=== PATIENT | male | born 2000 | race Caucasian/White ===

== ENCOUNTER → 2021-11-25 | Outpatient (CLI) | payer BC ==
--- NOTE | 2021-11-26 09:19 | XR ---
EXAMINATION TYPE: XR abdomen 2V DATE OF EXAM: 11/25/2021 COMPARISON: NONE HISTORY: Pain TECHNIQUE: Two view abdominal series FINDINGS: The osseous structures are intact. The bowel gas pattern is nonspecific. Lung bases are clear. No s uspicious calcifications overlying the renal outline there is a vague calcification in the left hemip [place] IMPRESSION: 1. Nonspecific abdomen. A 3 mm left hemipelvic calcification is nonspecific. If concern for ureteral calculus correlate with noncontrast CT abdomen and pelvis.
== END | disposition home or self-care (01) ==
LOC: RADXRMAIN 16:41
PROVIDERS: ATTEND Family Medicine
DX: N20.1 Calculus of ureter (principal)
CPT/HCPCS: 74019